=== PATIENT | male | born 1995 | race Caucasian/White ===

== ENCOUNTER → 2018-05-07 | Outpatient (CLI) | payer BC ==
[~2018-05-07] MED LIST: HYDR-317 PO; MERC50TA14 PO; PENTA500PT PO
[2018-05-07 14:28] LABS: PLATELET COUNT, AUTOMATED 222 K/uL (150-450)
== END ==
LOC: LAB 14:08
PROVIDERS: ATTEND Internal Medicine Gastroenterology
DX: K50.112 Crohn's disease of large intestine with intestinal obstruction (principal); K61.1 Rectal abscess; Z87.19 Personal history of other diseases of the digestive system
CPT/HCPCS: 82040; 82247; 82310; 82374; 82435; 82565; 82947; 83993; 84075; 84132; 84155; 84295; 84450; 84460; 84520; 85025

== ENCOUNTER 2018-06-20 14:29 | Emergency (ER) | payer OTHER, BC ==
[2018-06-20] MEDS ORDERED: CIPROFLOXACIN 500 MG TAB PO ONE (14:40)
--- NOTE | 2018-06-20 16:23 | ER Report ---
History and Physical Time Seen By MD: 16:21 Hx. of Stated Complaint: PATIENT IS AN EMPLOYEE WITH A POTENTIAL EXPOSURE TO BACTERIAL MENINGITIS. HPI/ROS CHIEF COMPLAINT: Indication need HISTORY OF PRESENT ILLNESS: Exposed to bacterial meningitis needing Cipro Remainder of the 14 system rev: Yes Allergies: Coded Allergies: No Known Drug Allergies (Unverified , 08/01/14) Home Meds Active Scripts Hydrocodone/Acetaminophen (Lortab 5-325 mg Tablet) 1 Each Tablet, 1-2 CAP PO Q4H, #30 CAP Prov:TRISTEN MADRIGAL MD 08/01/14 Reported Medications Mercaptopurine (MERCAPTOPURINE) 50 Mg Tablet, 25 MG PO BID 08/01/14 Mesalamine (PENTASA) 250 Mg Capcr, 1500 MG PO BID 08/01/14 Reviewed Nurses Notes: Yes Old Medical Records Reviewed: Yes Constitutional Vital Sign - Last 24 Hours 06/20/18 14:31 Temp 98.4 Physical Exam General appearance: Alert no distress. Respiratory: Chest is non tender, lungs are clear to auscultation. Cardiac: Regular rate and rhythm [ ] [ ] DIFFERENTIAL DIAGNOSIS: After history and physical exam differential diagnosis was considered for potion a bacterial meningitis Medical Decision Making ED Course/Re-evaluation ED Course ED course given 500 Cipro Decision to Disposition Date: Jun 20, 2018 Decision to Disposition Time: 16:22 Depart Departure Latest Vital Signs Vital Signs Date Time Temp Pulse Resp B/P (MAP) Pulse Ox O2 Delivery O2 Flow Rate FiO2 06/20/18 14:31 98.4 Impression: Primary Impression: Prophylactic antibiotic Condition: Condition Unchanged Disposition: HOME OR SELF-CARE Departure Forms: Medications Reconciliation, Patient Portal Information, ER Transition Record Patient Instructions: Body Substance Exposure (ED) ZENAIDA DELA CRUZ MD Jun 20, 2018 16:23
== END 2018-06-20 14:46 | disposition home or self-care (01) ==
LOC: ER 14:46
DX: Z20.811 Contact with and (suspected) exposure to meningococcus (principal)
CPT/HCPCS: 99283